=== PATIENT | female | born 1990 | race Caucasian/White ===

== ENCOUNTER 2017-06-05 14:48 | Emergency (ER) | payer OTHER ==
[2017-06-05 16:46] VITALS: BP 138/97
[2017-06-05] MEDS ORDERED: Meclizine TAB* 12.5 MG PO ONE (17:20)
--- NOTE | 2017-06-05 17:33 | UC ---
Complaint Female HPI - HPI Summary HPI Summary: 1. recently has had a sensation of spinning and movement began when uri sx began 2. has not had a real period for 2 years recently has had some spotting with thick yellow discharge, is not sexually active - History Of Current Complaint Chief Complaint: UCGeneralIllness Stated Complaint: ABDOMINAL PAIN/DIZZINESS/SHAKES Time Seen by Provider: 06/05/17 16:46 Hx Obtained From: Patient Hx Last Menstrual Period: 05/2016-PCOS ?: No Onset/Duration: Sudden Onset Timing: Lasting Days - vertigo---better when she holds still it can make her nauseated at times Severity Initially: Mild Severity Currently: Mild Pain Intensity: 0 Aggravating Factor(s): Nothing Alleviating Factor(s): Nothing Associated Signs And Symptoms: Positive: Vaginal Bleeding/Discharge, Nausea - with vertigo. Negative: Fever, Back Pain, Vomiting(# Of Episodes =), Genital Swelling, Genital Blisters, Retained Foregin Body (Specify) - Allergies/Home Medications Allergies/Adverse Reactions: Allergies Allergy/AdvReac Type Severity Reaction Status Date / Time Penicillins Allergy Intermediate Hives Verified 06/05/17 16:46 azithromycin [From Zithromax] AdvReac GI symptoms Verified 06/05/17 16:46 Home Medications: Home Medications Loperamide CAP* [Imodium CAP*] 4 mg PO TID PRN 06/05/17 [History Confirmed 06/05] PMH/Surg Hx/FS Hx/Imm Hx Previously Healthy: No - PCOS-not being treated-last 2013 GI/ History: Other Other GI/ History: IBS-D - Surgical History Surgical History: Yes Surgery Procedure, Year, and Place: gallbladder - Family History Known Family History: Positive: Hypertension, Diabetes - Social History Occupation: Employed Part-time, Student Lives: Alone Alcohol Use: Occasionally Substance Use Type: None Smoking Status (MU): Never Smoked Tobacco Review of Systems Constitutional: Negative Skin: Negative Eyes: Negative ENT: Ear Ache, Nasal Discharge Respiratory: Negative Cardiovascular: Negative Gastrointestinal: Nausea - with vertigo Genitourinary: Other - spotting in the past few months Motor: Negative Neurovascular: Negative Musculoskeletal: Negative Neurological: Negative Psychological: Negative Is Patient Immunocompromised?: No All Other Systems Reviewed And Are Negative: Yes Physical Exam Triage Information Reviewed: Yes Appearance: Well-Appearing, No Pain Distress, Obese Vital Signs: Initial Vital Signs Temp 98.6 F 06/05/17 16:40 Pulse 94 06/05/17 16:40 Resp 17 06/05/17 16:40 BP 138/97 06/05/17 16:40 Pulse Ox 99 06/05/17 16:40 Vital Signs Reviewed: Yes Eye Exam: Normal Eyes: Positive: Other: - perrla, eomi, nystagmus which brought on nausea and spinning sensation with full to the left and right gaze ENT Exam: Normal ENT: Positive: Normal ENT inspection, Hearing grossly normal, Pharynx normal, TMs normal, Uvula midline. Negative: Nasal congestion, Nasal drainage, Trismus , Muffled voice, Hoarse voice, Sinus tenderness Dental Exam: Normal Neck exam: Normal Neck: Positive: Supple, Nontender, No Lymphadenopathy Respiratory Exam: Normal Respiratory: Positive: Chest non-tender, Lungs clear, Normal breath sounds, No respiratory distress, No accessory muscle use Cardiovascular Exam: Normal Cardiovascular: Positive: RRR, No Murmur, Pulses Normal, Brisk Capillary Refill Abdominal Exam: Normal Abdomen Description: Positive: Nontender, No Organomegaly, Soft. Negative: CVA Tenderness (R), CVA Tenderness (L), Distended, Guarding, Hernia @, Hepatomegaly , McBurney's Point Tenderness, Peritoneal Signs Bowel Sounds: Positive: Present Musculoskeletal Exam: Normal Musculoskeletal: Positive: Strength Intact, ROM Intact, No Edema Neurological Exam: Normal Neurological: Positive: Alert, Muscle Tone Normal Psychological Exam: Normal Skin Exam: Normal UC Physical Exam Vital Signs On Initial Exam: Initial Vitals Temp Pulse Resp BP Pulse Ox 98.6 F 94 17 138/97 99 06/05/17 16:40 06/05/17 16:40 06/05/17 16:40 06/05/17 16:40 06/05/17 16:40 - Genitalia Exam Female Genitourinary: Normal External Exam, Normal Vaginal Exam, Vagina without Blood/Discharge, Other - nabothian glands present on cervix, non painful bimaneul examination Diagnostics - Laboratory Diagnostic Studies Completed/Ordered: will culture urine Complaint Female Dx - Course Course Of Treatment: antivert, urine culture, affirm and apptima swabs obtained- --plan to follow with railway shunter MD and pcp this week - Differential Dx/Diagnosis Provider Diagnoses: Vertigo, pelvic pain Discharge - Discharge Plan Condition: Stable Disposition: HOME Prescriptions: Meclizine TAB* [Antivert 12.5 TAB*] 25 mg PO TID PRN #20 tab PRN Reason: vertigo Patient Education Materials: Vertigo (ED), Pelvic Pain (ED) Referrals: [facility] [Outside] - 3 Days () Kia Cruz NP [Nurse Practitioner] - 5 Days
--- NOTE | 2017-06-08 07:15 | UC ---
- Progress Note Progress Note: please call the pt. with the lab results + BV will send a Rx for Flagyl 500 mg 2 x per day for 7 days
== END 2017-06-05 17:44 | disposition home or self-care (01) ==
LOC: UCCORT 14:48
DX: R42 Dizziness and giddiness (principal); R10.2 Pelvic and perineal pain
CPT/HCPCS: 81003; 84702; 87086; 87480; 87491; 87510; 87591; 87661; 99202; A9270-GY; G0463